=== PATIENT | female | born 1960 | race Two or more races ===

== ENCOUNTER 2019-12-05 10:25 | Emergency (ER) | payer MEDICAID ==
[2019-12-05 10:31] VITALS: BP 142/91
--- NOTE | 2019-12-05 10:47 | ER Document Report ---
HPI - HPI Time Seen by Provider: 12/05/19 10:41 Notes: Patient is a 59-year-old female who presents to the ED complaining of left upper dental pain #151 week, with swelling that started x1 day. She has not noticed any obvious abscess or purulent discharge. Patient states that she is still a ble to eat and drink, but does have a decreased p.o. intake due to the pain. She has tried some [id number] meds with minimal relief. No other concerns or complaints. Denies any headache, fever, head injury, neck pain, hoarseness, drooling, URI, sore throat, chest pain, palpitations, syncope, cough, shortness of breath, wheeze, dyspnea, abdominal pain, nausea/vomiting/diarrhea, urinary retention, dysuria, hematuria, or rash. - ROS Systems Reviewed and Negative: Yes All other systems reviewed and negative Past Medical History - Social History Smoking Status: Never Smoker Family History: Reviewed & Not Pertinent Vertical Provider Document - CONSTITUTIONAL Agree With Documented VS: Yes Notes: PHYSICAL EXAMINATION: GENERAL: Well-appearing, well-nourished and in no acute distress. HEAD: Atraumatic, normocephalic. EYES: Pupils equal round and reactive to light, extraocular movements intact, sclera anicteric, conjunctiva are normal. ENT: EAC clear b/l. TM's intact b/l without erythema, fluid, or perforation. Nares patent and without discharge. oropharynx clear without exudates. No tonsilar hypertrophy or erythema. Moist mucous membranes. No sinus tenderness. Uvula midline. No palatine shift. No tongue protrusion. No respiratory compromise. Mouth: Poor dentition. + severe decay and mild gingivitis. No obvious abscess or discharge noted. No facial swelling. + tenderness to tooth #15. NECK: Normal range of motion, supple without lymphadenopathy. No rigidity/meningismus. LUNGS: Breath sounds clear to auscultation bilaterally and equal. No wheezes rales or rhonchi. HEART: Regular rate and rhythm without murmurs, rubs, gallops. NEUROLOGICAL: Cranial nerves grossly intact. Normal speech, normal gait. Normal sensory, motor exams PSYCH: Normal mood, normal affect. SKIN: Warm, Dry, normal turgor, no rashes or lesions noted. Course - Re-evaluation Re-evalutation: 12/05/19 10:47 Patient is an afebrile, well-hydrated, 59-year-old female who presents to the ED with dental pain, suspect nerve root etiology versus infection. Vitals are acceptable. PE is otherwise unremarkable. No I&D, labs, or imaging warranted at this time based on H&P. I will send him home with a prescription for Cleocin due to penicillin allergy. Low suspicion for any meningitis, sepsis, peritonsillar/pharyngeal abscess, respiratory compromise, Guicho's, temporal arteritis, or other emergent systemic condition at this time. Patient is aware this condition can change from initial presentation and she needs to monitor symptoms closely. Conservative measures otherwise for symptoms. Call to schedule an appointment with a dentist for further evaluation and management. Recheck with your PCM this week as well. Return to the ED with any worsening/concerning symptoms otherwise as reviewed in discharge. Patient is in agreement. - Vital Signs Vital signs: Temp Pulse Resp BP Pulse Ox 98.8 F 91 18 142/91 H 93 12/05/19 10:30 12/05/19 10:30 12/05/19 10:30 12/05/19 10:30 12/05/19 10:30 Discharge - Discharge Clinical Impression: Pain, dental Condition: Stable Disposition: HOME, SELF-CARE Instructions: Clindamycin ([facility]), Toothache ([facility]) Additional Instructions: Liberty and floss twice daily Maintain fluid intake Take antibiotics as directed Mouthwash, salt water gargles, peroxide rinse as needed Tylenol/ibuprofen as needed Recheck with PCM this week Call today/tomorrow and schedule an appointment with your dentist for further evaluation Return to the ED with any worsening symptoms and/or development of fever, headache, facial swelling, swelling of lips/tongue/throat, trouble swallowing, drooling, hoarseness, neck pain/stiffness, chest pain, palpitations, syncope, shortness of breath, trouble breathing, abdominal pain, n/v/d, numbness/tingling, or other worsening symptoms that are concerning to you. Prescriptions: Clindamycin HCl [Cleocin 300 mg Capsule] 300 mg PO TID #30 capsule Ibuprofen [Motrin 800 mg Tablet] 800 mg PO Q8H PRN #15 tab PRN Reason: Forms: Elevated Blood Pressure Referrals: NEWTON DELA CRUZ NP [Primary Care Provider] - Follow up as needed [facility] [Provider Group] - Follow up as needed
== END 2019-12-05 10:46 | disposition home or self-care (01) ==
LOC: ER 10:25
DX: K02.9 Dental caries, unspecified (principal); K05.10 Chronic gingivitis, plaque induced; K08.89 Other specified disorders of teeth and supporting structures
CPT/HCPCS: 99282

== ENCOUNTER 2019-12-28 23:27 | Emergency (ER) | payer MEDICAID ==
--- NOTE | 2019-12-28 23:55 | ER Document Report ---
ED General - General Chief Complaint: Shoulder Injury Stated Complaint: LEFT SHOULDER PAIN Time Seen by Provider: 12/28/19 23:37 Primary Care Provider: NEWTON DELA CRUZ NP [Primary Care Provider] - Follow up as needed TRAVEL OUTSIDE OF THE [place] IN LAST 30 DAYS: No - HPI Notes: Patient is a 59-year-old female who presents to the emergency department for evaluation. She states she had a mechanical fall, fell down onto her shoulder. She denies hitting her head, no loss of consciousness. She complains of pain in her shoulder. She denies any numbness or tingling. She has no other acute complaints or concerns. She has no history of injury to that shoulder. She is on a baby aspirin but otherwise takes no blood thinners. - Related Data Allergies/Adverse Reactions: Penicillins Allergy (Verified 12/05/19 10:41) Past Medical History - General Information source: Patient, [facility] Records - Social History Smoking Status: Never Smoker Family History: Reviewed & Not Pertinent Patient has suicidal ideation: No Patient has homicidal ideation: No - Past Medical History Cardiac Medical History: Reports: Hx Hypercholesterolemia, Hx Hypertension Endocrine Medical History: Reports: Hx Diabetes Mellitus Type 2 Review of Systems - Review of Systems Constitutional: No symptoms reported EENT: No symptoms reported Cardiovascular: No symptoms reported Respiratory: No symptoms reported Gastrointestinal: No symptoms reported Genitourinary: No symptoms reported Musculoskeletal: See HPI Skin: No symptoms reported Neurological/Psychological: No symptoms reported Physical Exam - Vital signs Vitals: Temp Pulse Resp BP Pulse Ox 98.1 F 78 16 143/89 H 93 12/28/19 23:37 12/28/19 23:37 12/28/19 23:37 12/28/19 23:37 12/28/19 23:37 - Notes Notes: This is a pleasant 59-year-old female who appears her stated age, no acute distress. Head is normocephalic and atraumatic, pupils are equal round, maame ctive to light. Onychosis moist. Heart is regular rhythm, lungs are clear to auscultation bilaterally. Focused physical exam performed on left upper extremity. No obvious deformity. Patient resists active range of motion of the shoulder secondary to pain. She is full active range of motion of the elbow, wrist, fingers, thumb. She is tender over the olecranon. Neurovascularly intact to the entire left upper extremity, including the distribution of the axillary nerve. Radial pulse 2+, capillary refill is brisk. Course - Re-evaluation Re-evalutation: 12/28/19 23:55 Patient is a 59-year-old female who presents to the emergency department for evaluation. She has pain in the shoulder, has tenderness over the olecranon. X-rays of the shoulder and left elbow were ordered. She received IV fentanyl in route for her pain, and seems to be much more comfortable. X-rays are ordered, patient stable, we will continue to monitor. 12/29/19 01:32 X-rays reveal nondisplaced humeral head fracture. Patient placed in sling, neurovascularly intact following. Will refer her to orthopedics. She is to return to the ED with worsening or new concerning symptoms. Otherwise, she should take Tylenol or ibuprofen at home as needed for pain. - Vital Signs Vital signs: Temp Pulse Resp BP Pulse Ox 98.1 F 78 16 143/89 H 93 12/28/19 23:37 12/28/19 23:37 12/28/19 23:37 12/28/19 23:37 12/28/19 23:37 - Diagnostic Test Radiology reviewed: Image reviewed, Reports reviewed Radiology results interpreted by me: 12/29/19 01:34 Elbow X-Ray 12/28/19 23:52 IMPRESSION: No acute fracture or dislocation copyright 2010 [employer]- All Rights Reserved Shoulder X-Ray 12/28/19 23:52 IMPRESSION: Nondisplaced comminuted fracture involving the proximal left humerus. copyright 2011 [employer]- All Rights Reserved Discharge - Discharge Clinical Impression: Fracture of humerus, proximal, left, closed Qualifiers: Encounter type: initial encounter Fracture morphology: other fracture Fracture alignment: nondisplaced Qualified Code(s): S42.295A - Other nondisplaced fracture of upper end of left humerus, initial encounter for closed fracture Condition: Stable Disposition: HOME, SELF-CARE Instructions: Oral Narcotic Medication ([facility]), Sling as Treatment ([facility]) Additional Instructions: Tiene morgan fractura de tu hombro. No esta desplazado, josé miguel necesitara farida a un medico ortopedico para el seguimento. Por favor use la honda hasta que lo lindsey. Arena norco para el dolor ji. Regrese a la lalo de emergencias si desarrolla sintomas nuevos o empeorados. Referrals: NEWTON DELA CRUZ NP [Primary Care Provider] - Follow up as needed
--- NOTE | 2019-12-29 01:16 | RADIOLOGY REPORT (SQ) ---
EXAM DESCRIPTION: XR ELBOW 1-2 VIEWS COMPLETED DATE/TME: 12/28/2019 23:52 CLINICAL HISTORY: 59 years, Female, injury COMPARISON: None. NUMBER OF VIEWS: Two TECHNIQUE: Two views of the left elbow LIMITATIONS: None. FINDINGS: No acute fracture or dislocation. No joint effusion is detected. No large soft tissue swelling. No radiopaque foreign body. IMPRESSION: No acute fracture or dislocation copyright 2010 [employer]- All Rights Reserved
--- NOTE | 2019-12-29 01:18 | RADIOLOGY REPORT (SQ) ---
EXAM DESCRIPTION: XR SHOULDER 2 OR MORE VIEWS COMPLETED DATE/TME: 12/28/2019 23:52 CLINICAL HISTORY: 59 years, Female, injury COMPARISON: None. NUMBER OF VIEWS: Three TECHNIQUE: Three views of the left shoulder LIMITATIONS: None. FINDINGS: There is a nondisplaced and comminuted fracture involving the left humeral head/neck. There is soft tissue swelling around the fracture site. No other fracture is identified. The AC joint is intact. No radiopaque foreign body. IMPRESSION: Nondisplaced comminuted fracture involving the proximal left humerus. copyright 2010 [employer]- All Rights Reserved
[2019-12-29] MEDS ORDERED: HYDROCODONE/ACETAMINOPHEN 5-325 MG (6 TAB/ER DISP) PO PRN (01:36)
[2019-12-29 01:58] VITALS: BP 107/87
== END 2019-12-29 02:11 | disposition home or self-care (01) ==
LOC: ER 23:27
DX: S42.295A Other nondisplaced fracture of upper end of left humerus, initial encounter for closed fracture (principal); W19.XXXA Unspecified fall, initial encounter; E78.00 Pure hypercholesterolemia, unspecified; I10 Essential (primary) hypertension; E11.9 Type 2 diabetes mellitus without complications; Z88.0 Allergy status to penicillin
CPT/HCPCS: 99283

== ENCOUNTER 2020-01-19 14:22 | Emergency (ER) | payer MEDICAID ==
[2020-01-19 15:02] VITALS: BP 129/71
--- NOTE | 2020-01-19 15:31 | ER Document Report ---
HPI - HPI Time Seen by Provider: 01/19/20 14:59 Pain Level: 3 Context: Patient is a 59-year-old [place]ambican-speaking female who presents to the emergency department with a chief complaint of left arm pain. She was seen on December 28 and she fell at home and she had a humerus fracture. She was referred to orthopedics for follow-up. Patient states that she followed up with them, and went to radiology, but was referred for another x-ray. She states that she was unable to go to radiology for another x-ray due to transportation issues. [employer] interpreter #[id number] was used translation. - ROS Systems Reviewed and Negative: Yes All other systems reviewed and negative - CONSTITUTIONAL Constitutional: DENIES: Fever, Chills - MUSCULOSKELETAL Musculoskeletal: REPORTS: Extremity pain. DENIES: Swelling - DERM Skin Color: Normal Skin Problems: None Past Medical History - General Information source: Patient - Social History Smoking Status: Current Every Day Smoker Family History: Reviewed & Not Pertinent Patient has suicidal ideation: No Patient has homicidal ideation: No - Past Medical History Cardiac Medical History: Reports: Hx Hypercholesterolemia, Hx Hypertension Endocrine Medical History: Reports: Hx Diabetes Mellitus Type 2 Psychiatric Medical History: Reports: Hx Bipolar Disorder Vertical Provider Document - CONSTITUTIONAL Agree With Documented VS: Yes Exam Limitations: No Limitations General Appearance: No Apparent Distress - INFECTION CONTROL TRAVEL OUTSIDE OF THE [place] IN LAST 30 DAYS: No - HEENT HEENT: Atraumatic, Normocephalic, PERRLA - NECK Neck: Normal Inspection - RESPIRATORY Respiratory: Breath Sounds Normal, No Respiratory Distress - CARDIOVASCULAR Cardiovascular: Regular Rate, Regular Rhythm Pulses: Normal: Radial - MUSCULOSKELETAL/EXTREMETIES Musculoskeletal/Extremeties: Tender - Left medial varus. negative: FROM - Decreased range of motion, as the patient's arm is in a sling. - NEURO Level of Consciousness: Awake, Alert, Appropriate - DERM Integumentary: Warm, Dry Course - Re-evaluation Re-evalutation: 01/19/20 16:18 I was able to obtain the imaging from her previous visit on a disc and I advised the patient to follow-up with orthopedics and give them the copy of the disc. I also refilled her ibuprofen. Patient was thankful for her care. Repeat x-rays were not necessary, as the patient already has a fracture and no new injury had occurred. Capillary refill less than 3 seconds. Radial pulse 2+. I have a very low suspicion for any life-threatening etiology at this time. Follow-up precautions were given. Verbal discharge instructions were given to the patient. They verbalized understanding. They are stable for discharge. - Vital Signs Vital signs: Temp Pulse Resp BP Pulse Ox 98.3 F 96 16 129/71 H 95 01/19/20 15:01 01/19/20 15:01 01/19/20 15:01 01/19/20 15:01 01/19/20 15:01 Discharge - Discharge Clinical Impression: Left arm pain Humerus fracture Qualifiers: Encounter type: subsequent encounter Fracture type: closed Fracture alignment: nondisplaced Laterality: left Condition: Stable Disposition: HOME, SELF-CARE Additional Instructions: You were seen today in the emergency department for left arm pain. Continue to take ibuprofen to help with your pain. Please follow-up with orthopedics. You received the disc and the printout of your x-ray. Please bring these to your orthopedic doctor. Prescriptions: Ibuprofen [Ibu] 600 mg PO Q6HP PRN #30 tablet PRN Reason: Referrals: NEWTON DELA CRUZ NP [Primary Care Provider] - Follow up as needed Print Language: Mozambican
== END 2020-01-19 16:20 | disposition home or self-care (01) ==
LOC: ER 14:22
DX: S42.302D Unspecified fracture of shaft of humerus, left arm, subsequent encounter for fracture with routine healing (principal); M79.602 Pain in left arm; W19.XXXD Unspecified fall, subsequent encounter; Y92.009 Unspecified place in unspecified non-institutional (private) residence as the place of occurrence of the external cause; F17.200 Nicotine dependence, unspecified, uncomplicated; I10 Essential (primary) hypertension; E11.9 Type 2 diabetes mellitus without complications
CPT/HCPCS: 99283

== ENCOUNTER 2020-02-11 07:43 | Emergency (ER) | payer MEDICAID ==
[2020-02-11 08:16] VITALS: BP 132/86
[2020-02-11] MEDS ORDERED: LIDOCAINE 2% VISCOUS SOLN 15 ML UDCUP PO ONE (08:55)
--- NOTE | 2020-02-11 08:56 | ER Document Report ---
HPI - HPI Time Seen by Provider: 02/11/20 08:34 Pain Level: 4 Context: Patient is a 59-year-old female presents emergency department with a chief complaint of generalized tooth pain to her right upper jaw. She cannot specify which tooth is actually bothering her. She states that she has a dentist appointment next Sunday, but states that the pain is so bad that she cannot handle it. States that she had ibuprofen, but ran out of it. She has not been taking Tylenol. Patient also still complains of having left arm pain, but has not followed up with orthopedic physician that she was supposed to follow-up with the last time I saw her. She states that she has not given the images to him. Please refer to my previous note from her last visit for further details. Patient denies any fevers, body aches, chills, or shortness of breath. - CONSTITUTIONAL Constitutional: DENIES: Fever, Chills - EENT EENT: DENIES: Sore Throat Notes: Right upper mouth tooth pain - NEURO Neurology: DENIES: Headache - CARDIOVASCULAR Cardiovascular: DENIES: Chest pain - RESPIRATORY Respiratory: DENIES: Trouble Breathing, Coughing - GASTROINTESTINAL Gastrointestinal: DENIES: Abdominal Pain - REPRODUCTIVE Reproductive: DENIES: : - MUSCULOSKELETAL Musculoskeletal: REPORTS: Extremity pain - Left upper arm - DERM Skin Color: Normal Skin Problems: None Past Medical History - Social History Smoking Status: Unknown if Ever Smoked Frequency of alcohol use: None Drug Abuse: None Family History: Reviewed & Not Pertinent Patient has suicidal ideation: No Patient has homicidal ideation: No - Past Medical History Cardiac Medical History: Reports: Hx Hypercholesterolemia, Hx Hypertension Endocrine Medical History: Reports: Hx Diabetes Mellitus Type 2 Psychiatric Medical History: Reports: Hx Bipolar Disorder Vertical Provider Document - CONSTITUTIONAL Agree With Documented VS: Yes Exam Limitations: No Limitations General Appearance: No Apparent Distress - INFECTION CONTROL TRAVEL OUTSIDE OF THE [place] IN LAST 30 DAYS: No - HEENT HEENT: Atraumatic, Normocephalic, PERRLA - NECK Neck: Normal Inspection - RESPIRATORY Respiratory: Breath Sounds Normal, No Respiratory Distress - CARDIOVASCULAR Cardiovascular: Regular Rate, Regular Rhythm Pulses: Normal: Radial - MUSCULOSKELETAL/EXTREMETIES Musculoskeletal/Extremeties: FROM - NEURO Level of Consciousness: Awake, Alert, Appropriate Motor/Sensory: No Motor Deficit, No Sensory Deficit - DERM Integumentary: Warm, Dry, No Rash Course - Re-evaluation Re-evalutation: 02/11/20 08:56 Patient's physical exam and history is most consistent with a infected tooth. Patient is able to swallow, no facial swelling noted, airway is patent, vital signs are normal. I do not suspect Guicho's angina, peritonsilar abscess, or airway obstruction. The patient will be started on oral antibiotics. I have given the patient education on their antibiotics. Patient was given instructions to follow-up with a dentist this week. Return precautions were given. Verbal discharge instructions were given. Patient verbalized understanding. Patient is stable for discharge. As far as the patient's left arm pain goes, I advised her to follow-up with orthopedics and give them the disc, since she has not given them copies of the radiology images. - Vital Signs Vital signs: Temp Pulse Resp BP Pulse Ox 98 F 106 H 18 132/86 H 95 02/11/20 08:01 02/11/20 08:01 02/11/20 08:01 02/11/20 08:01 02/11/20 08:01 Discharge - Discharge Clinical Impression: Toothache Condition: Stable Disposition: HOME, SELF-CARE Instructions: Clindamycin ([facility]), Toothache ([facility]) Additional Instructions: You have been seen in the emergency department for a toothache. You may take ibuprofen 600 mg and Tylenol 1000 mg every 6 hours as needed for the pain. You have also been given topical lidocaine. Placed that to the affected tooth as needed to help with pain. You have also been prescribed antibiotics. Please take the antibiotics as prescribed, even if you start to feel better. If you develop a fever greater than 100.4 F, or have any symptoms that are worrisome to you, please return to the emergency department. Please follow-up with a dentist this week in regards to your visit. Prescriptions: Ibuprofen [Ibu] 600 mg PO Q6HP PRN #30 tablet PRN Reason: Clindamycin HCl [Cleocin 150 mg Capsule] 300 mg PO Q6 7 Days #56 capsule Referrals: NEWTON DELA CRUZ NP [Primary Care Provider] - Follow up as needed
== END 2020-02-11 09:15 | disposition home or self-care (01) ==
LOC: ER 07:43
DX: K08.89 Other specified disorders of teeth and supporting structures (principal); M79.622 Pain in left upper arm; I10 Essential (primary) hypertension; E11.9 Type 2 diabetes mellitus without complications
CPT/HCPCS: 99283; J3490